=== PATIENT | female | born 1985 | race Caucasian/White ===

== ENCOUNTER 2019-11-11 05:30 | Inpatient (IN) | payer OTHER ==
[2019-11-11] MEDS ORDERED: Sodium Chloride 0.9% 10 ML Syringe FLUSH PRN (05:56)
[2019-11-11] MEDS ORDERED: Nalbuphine 10 MG/ML Syringe IVPUSH PRN (05:56)
[2019-11-11] MEDS ORDERED: Lactated Ringers 1,000 ML IV SCH (06:00)
--- NOTE | 2019-11-11 06:05 | PCM.LDHP ---
L&D History of Present Illness - General Date of Service: 11/11/19 Admit Problem/Dx: Admission Diagnosis/Problem Admission Diagnosis/Problem Source of Information: Patient - History of Present Illness Introduction:: 34 year old at 39w2 by LMP consistent with 6 week ultrasound presents [facility] in [place] with Dr. Balderas complicated by 1. Gestational diabetes poorly controlled by diet but not to the degree she has required or agreed to medication 2. History of prior 9# baby - Related Data Allergies/Adverse Reactions: Allergies Allergy/AdvReac Type Severity Reaction Status Date / Time No Known Allergies Allergy Verified 11/11/19 05:56 Social & Family History - Family History Family Medical History: Noncontributory - Tobacco Use Smoking Status *Q: Never Smoker H&P Review of Systems - Review of Systems: Review Of Systems: See Below General: Reports: No Symptoms HEENT: Reports: No Symptoms Pulmonary: Reports: No Symptoms Cardiovascular: Reports: No Symptoms Gastrointestinal: Reports: No Symptoms Genitourinary: Reports: No Symptoms Musculoskeletal: Reports: No Symptoms Skin: Reports: No Symptoms Psychiatric: Reports: No Symptoms Neurological: Reports: No Symptoms Hematologic/Lymphatic: Reports: No Symptoms Immunologic: Reports: No Symptoms L&D Exam - Exam Exam: See Below - Vital Signs Weight: 83.007 kg - OB Specific Contraction Intensity: Moderate to Strong Movement: Active Heart Tones: Present - Obrien Score Obrien Score Cervix Position: Anterior Obrien Score Consistency: Soft Obrien Score Effacement: >80% Obrien Score Dilation: > 5 cm Obrien Score Infant's Station: -2 Obrien Score Total: 11 - Exam General: Alert, Oriented HEENT: PERRLA, Conjunctiva Clear, EACs Clear, EOMI, Hearing Intact, Mucosa Moist & [place], Nares Patent, Normal Nasal Septum, Posterior Pharynx Clear, TMs Clear Neck: Supple, Trachea Midline Lungs: Clear to Auscultation, Normal Respiratory Effort Cardiovascular: Regular Rate, Regular Rhythm GI/Abdominal Exam: Normal Bowel Sounds, Soft, Non-Tender, No Organomegaly, No Distention, No Abnormal Bruit, No Mass Genitourinary: Normal external exam, Normal bimanual exam Back Exam: Normal Inspection, Full Range of Motion Extremities: Normal Inspection, Normal Range of Motion, Non-Tender, No Pedal E luci, Normal Capillary Refill Skin: Warm, Dry, Intact Neurological: Cranial Nerves Intact, Reflexes Equal Bilateral Psychiatric: Alert, Normal Affect, Normal Mood Problem List Initiated/Reviewed/Updated: Yes Assessment/Plan Comment:: Term labor with gestational diabetes. Anticipate .
[2019-11-11] MEDS ORDERED: Azithromycin 500 MG in Sodium Chloride 0.9% 250 ML IV ONE (06:50)
[2019-11-11] MEDS ORDERED: Lidocaine 1% 10 ML MDV INJECT ONE (06:54)
[2019-11-11] MEDS ORDERED: Oxytocin/Lactated Ringers 10 UNIT/1,000 ML BAG IV SCH (06:54)
--- NOTE | 2019-11-11 07:39 | PCM.SN.2 ---
- Free Text/Narrative Note: Stage I - Patient presented in active labor with SROM thick meconium. [facility] with Dr. Balderas complicated by gestational diabetes with inadequate control. Prior 9# . Mom unable to gauge if this baby is bigger. Progressed to complete with overall reassuring heart tones. Stage II - With maternal effort head delivered in controlled manner slowly over intact perineum at 0652. Shoulders did not come easily. Brandi preformed. Head PARISA. Pressure exterted on anterior shoulder with care and no progress toward delivery. Rectum emptied with pressure on perineum. Gentle pressure anterior on baby's posterior (left) shoulder. Some movement but still delivery not achieved. More pressure on posterior shoulder and delivery achieved of limp . Stage III - of intact meconium stained placenta. 350 EBL. 3v cord. Cord gases and blood collected. Small first degree laceration repaired with 3-0 vicryl.
[2019-11-11] MEDS: Ibuprofen 600 MG Tab PO PRN ×3 (09:08→21:41)
[2019-11-11] MEDS: Acetaminophen 325 MG Tab PO PRN (20:07)
--- NOTE | 2019-11-12 00:01 | PCM.PNPP ---
- General Info Date of Service: 11/12/19 Functional Status: Reports: Pain Controlled, Tolerating Diet, Ambulating, Urinating - Review of Systems General: Reports: No Symptoms Pulmonary: Reports: No Symptoms Cardiovascular: Reports: No Symptoms Gastrointestinal: Reports: No Symptoms Genitourinary: Reports: No Symptoms Musculoskeletal: Reports: No Symptoms Neurological: Reports: No Symptoms Psychiatric: Reports: Other (tearful - baby to be transferred to [place]) - General Info Date of Service: 11/12/19 - Patient Data Vital Signs - Most Recent: Last Vital Signs Temp 36.6 C 11/11/19 17:07 Pulse 77 11/11/19 17:07 Resp 14 11/11/19 17:07 BP 110/88 11/11/19 17:07 Pulse Ox 99 11/11/19 17:07 Weight - Most Recent: 83.007 kg I&O - Last 24 Hours: Intake & Output 11/11/19 11/11/19 11/12/19 14:59 22:59 06:59 Intake Total 120 Balance 120 Lab Results - Last 24 Hours: Laboratory Results - last 24 hr 11/11/19 11/11/19 11/11/19 Range/Units 06:15 07:45 07:45 WBC 16.50 H (3.98-10.04) K/mm3 RBC 4.04 (3.98-5.22) M/mm3 Hgb 10.8 L (11.2-15.7) gm/dl Hct 34.4 (34.1-44.9) % MCV 85.1 (79.4-94.8) fl MCH 26.7 (25.6-32.2) pg MCHC 31.4 L (32.2-35.5) g/dl RDW Std Deviation 56.0 H (36.4-46.3) fL Plt Count 230 (182-369) K/mm3 MPV 10.1 (9.4-12.3) fl Neut % (Auto) 90.4 H (34.0-71.1) % Lymph % (Auto) 4.7 L (19.3-51.7) % [place] % (Auto) 3.8 L (4.7-12.5) % Eos % (Auto) 0 L (0.7-5.8) Baso % (Auto) 0.1 (0.1-1.2) % Neut # (Auto) 14.92 H (1.56-6.13) K/mm3 Lymph # (Auto) 0.77 L (1.18-3.74) K/mm3 [place] # (Auto) 0.63 H (0.24-0.36) K/mm3 Eos # (Auto) 0.00 L (0.04-0.36) K/mm3 Baso # (Auto) 0.02 (0.01-0.08) K/mm3 Manual Slide Review Abnormal smear Glucose (74-106) mg/dL POC Glucose 116 H (70-105) mg/dL RPR Non-reactive (NONREACTIVE) COVID-19 (PRAFUL) (NEGATIVE) 11/11/19 11/11/19 Range/Units 07:45 08:20 WBC (3.98-10.04) K/mm3 RBC (3.98-5.22) M/mm3 Hgb (11.2-15.7) gm/dl Hct (34.1-44.9) % MCV (79.4-94.8) fl MCH (25.6-32.2) pg MCHC (32.2-35.5) g/dl RDW Std Deviation (36.4-46.3) fL Plt Count (182-369) K/mm3 MPV (9.4-12.3) fl Neut % (Auto) (34.0-71.1) % Lymph % (Auto) (19.3-51.7) % [place] % (Auto) (4.7-12.5) % Eos % (Auto) (0.7-5.8) Baso % (Auto) (0.1-1.2) % Neut # (Auto) (1.56-6.13) K/mm3 Lymph # (Auto) (1.18-3.74) K/mm3 [place] # (Auto) (0.24-0.36) K/mm3 Eos # (Auto) (0.04-0.36) K/mm3 Baso # (Auto) (0.01-0.08) K/mm3 Manual Slide Review Glucose 155 H (74-106) mg/dL POC Glucose (70-105) mg/dL RPR (NONREACTIVE) COVID-19 (PRAFUL) Negative (NEGATIVE) Med Orders - Current: Current Medications Acetaminophen (Tylenol) 650 mg PO Q6H PRN PRN Reason: Pain (mild 1-3) Last Admin: 11/11/19 20:07 Dose: 650 mg Documented by: Oxytocin/Lactated Ringer's (Pitocin In Lr 10 Units/1,000 Ml) 10 unit in 1,000 mls @ 3,000 mls/hr IV TITRATE WILLAM; Protocol Last Admin: 11/11/19 07:48 Dose: 500 munits/min, 3,000 mls/hr Documented by: Ibuprofen (Motrin) 600 mg PO Q6H PRN PRN Reason: Mild pain or fever Last Admin: 11/11/19 21:41 Dose: 600 mg Documented by: Discontinued Medications Lactated Ringer's (Ringers, Lactated) 1,000 mls @ 100 mls/hr IV ASDIRECTED WILLAM Azithromycin 500 mg/ Sodium (Chloride) 250 mls @ 250 mls/hr IV ONETIME ONE Stop: 11/11/19 07:49 Last Admin: 11/11/19 08:16 Dose: Not Given Documented by: Lidocaine HCl (Xylocaine 1%) 10 ml INJECT ONETIME ONE Stop: 11/11/19 06:55 Last Admin: 11/11/19 07:53 Dose: 10 ml Documented by: Nalbuphine HCl (Nubain) 10 mg IVPUSH Q2H PRN PRN Reason: Pain Sodium Chloride (Saline Flush) 10 ml FLUSH ASDIRECTED PRN PRN Reason: Keep Vein Open - Interaction Disposition, : [facility] to Nursery Support Person: - Recovery Exam Fundal Tone: Firm Fundal Level: At Umbilicus Fundal Placement: Midline Lochia Color: Rubra/Red Perineum Description: Other (see below) Other Perinuem Description: 1st degree lac with repair Bladder Status: Voiding Urinary Elimination: Voided - Exam General: Alert, Oriented, Cooperative GI/Abdominal Exam: Soft, Non-Tender Extremities: Normal Inspection Skin: Warm, Dry, Intact - Problem List & Annotations (1) Vaginal delivery SNOMED Code(s): 962820091 Code(s): O80 - ENCOUNTER FOR FULL-TERM UNCOMPLICATED DELIVERY Status: Acute Current Visit: Yes (2) Shoulder dystocia during labor and delivery, delivered SNOMED Code(s): 915527439, 364812332 Code(s): O66.0 - OBSTRUCTED LABOR DUE TO SHOULDER DYSTOCIA Status: Acute Current Visit: Yes (3) Gestational diabetes SNOMED Code(s): 75514529 Code(s): O24.419 - GESTATIONAL DIABETES MELLITUS IN , UNSP CONTROL Status: Acute Current Visit: Yes Qualifiers: Gestational diabetes mellitus control: unspecified Trimester: unspecified trimester Qualified Code(s): O24.419 - Gestational diabetes mellitus in pre gnancy, unspecified control - Problem List Review Problem List Initiated/Reviewed/Updated: Yes - My Orders Last 24 Hours: My Active Orders 11/12/19 00:00 Ready for Discharge [RC] PER UNIT ROUTINE - Assessment Assessment:: PPD#1 - Plan Plan:: * Baby being transferred to NICU. Will discharge patient so can follow * will need 2hr GTT post delivery, asked patient to follow up with her primary Systems Technologist
--- NOTE | 2019-11-12 00:01 | PCM.DCSUM1 ---
Discharge Summary - Discharge Data Discharge Date: 11/12/19 Discharge Disposition: Home, Self-Care 01 Condition: Good - Referral to Home Health Primary Care Physician: Kalyn Rodríguez MD - Patient Summary/Data Complications: None Consults: None Recommended Follow-up Testing/Procedures: Follow up in 3 weeks for check Hospital Course: 34 y/o presented at 39 2/7 wks in labor. Progressed rapidly to complete dilation. Underwent a vaginal delivery notable for shoulder dystocia. See delivery note. did well.. Was discharged home on PPD#1 - Patient Instructions Diet: Regular Diet as Tolerated Activity: As Tolerated Activity, Other: Pelvic rest for 6 weeks Driving: May Drive Today Showering/Bathing: May Shower Showering/Bathing, Other: May Bathe Notify Provider of: Fever, Increased Pain, Swelling and Redness, Drainage, Nausea and/or Vomiting - Discharge Plan *PRESCRIPTION DRUG MONITORING PROGRAM REVIEWED*: No *COPY OF PRESCRIPTION DRUG MONITORING REPORT IN PATIENT VALENTÍN: No Home Medications: Home Meds Acetaminophen [Tylenol] 650 mg PO Q6H PRN tablet 11/11/19 [Rx] Ibuprofen [Motrin] 600 mg PO Q6H PRN tablet 11/11/19 [Rx] Patient Handouts: Care After Vaginal Delivery Referrals: Marta Bautista MD [Ordering Only Provider] - (3 weeks for check ) - Discharge Summary/Plan Comment DC Time >30 min.: No - Patient Data Vitals - Most Recent: Last Vital Signs Temp 36.6 C 11/11/19 17:07 Pulse 77 11/11/19 17:07 Resp 14 11/11/19 17:07 BP 110/88 11/11/19 17:07 Pulse Ox 99 11/11/19 17:07 Weight - Most Recent: 83.007 kg I&O - Last 24 hours: Intake & Output 11/11/19 11/11/19 11/12/19 14:59 22:59 06:59 Intake Total 120 Balance 120 Lab Results - Last 24 hrs: Laboratory Results - last 24 hr 11/11/19 11/11/19 11/11/19 Range/Units 06:15 07:45 07:45 WBC 16.50 H (3.98-10.04) K/mm3 RBC 4.04 (3.98-5.22) M/mm3 Hgb 10.8 L (11.2-15.7) gm/dl Hct 34.4 (34.1-44.9) % MCV 85.1 (79.4-94.8) fl MCH 26.7 (25.6-32.2) pg MCHC 31.4 L (32.2-35.5) g/dl RDW Std Deviation 56.0 H (36.4-46.3) fL Plt Count 230 (182-369) K/mm3 MPV 10.1 (9.4-12.3) fl Neut % (Auto) 90.4 H (34.0-71.1) % Lymph % (Auto) 4.7 L (19.3-51.7) % [place] % (Auto) 3.8 L (4.7-12.5) % Eos % (Auto) 0 L (0.7-5.8) Baso % (Auto) 0.1 (0.1-1.2) % Neut # (Auto) 14.92 H (1.56-6.13) K/mm3 Lymph # (Auto) 0.77 L (1.18-3.74) K/mm3 [place] # (Auto) 0.63 H (0.24-0.36) K/mm3 Eos # (Auto) 0.00 L (0.04-0.36) K/mm3 Baso # (Auto) 0.02 (0.01-0.08) K/mm3 Manual Slide Review Abnormal smear Glucose (74-106) mg/dL POC Glucose 116 H (70-105) mg/dL RPR Non-reactive (NONREACTIVE) COVID-19 (PRAFUL) (NEGATIVE) 11/11/19 11/11/19 Range/Units 07:45 08:20 WBC (3.98-10.04) K/mm3 RBC (3.98-5.22) M/mm3 Hgb (11.2-15.7) gm/dl Hct (34.1-44.9) % MCV (79.4-94.8) fl MCH (25.6-32.2) pg MCHC (32.2-35.5) g/dl RDW Std Deviation (36.4-46.3) fL Plt Count (182-369) K/mm3 MPV (9.4-12.3) fl Neut % (Auto) (34.0-71.1) % Lymph % (Auto) (19.3-51.7) % [place] % (Auto) (4.7-12.5) % Eos % (Auto) (0.7-5.8) Baso % (Auto) (0.1-1.2) % Neut # (Auto) (1.56-6.13) K/mm3 Lymph # (Auto) (1.18-3.74) K/mm3 [place] # (Auto) (0.24-0.36) K/mm3 Eos # (Auto) (0.04-0.36) K/mm3 Baso # (Auto) (0.01-0.08) K/mm3 Manual Slide Review Glucose 155 H (74-106) mg/dL POC Glucose (70-105) mg/dL RPR (NONREACTIVE) COVID-19 (PRAFUL) Negative (NEGATIVE) Med Orders - Current: Current Medications Acetaminophen (Tylenol) 650 mg PO Q6H PRN PRN Reason: Pain (mild 1-3) Last Admin: 11/11/19 20:07 Dose: 650 mg Documented by: Oxytocin/Lactated Ringer's (Pitocin In Lr 10 Units/1,000 Ml) 10 unit in 1,000 mls @ 3,000 mls/hr IV TITRATE WILLAM; Protocol Last Admin: 11/11/19 07:48 Dose: 500 munits/min, 3,000 mls/hr Documented by: Ibuprofen (Motrin) 600 mg PO Q6H PRN PRN Reason: Mild pain or fever Last Admin: 11/11/19 21:41 Dose: 600 mg Documented by: Discontinued Medications Lactated Ringer's (Ringers, Lactated) 1,000 mls @ 100 mls/hr IV ASDIRECTED WILLAM Azithromycin 500 mg/ Sodium (Chloride) 250 mls @ 250 mls/hr IV ONETIME ONE Stop: 11/11/19 07:49 Last Admin: 11/11/19 08:16 Dose: Not Given Documented by: Lidocaine HCl (Xylocaine 1%) 10 ml INJECT ONETIME ONE Stop: 11/11/19 06:55 Last Admin: 11/11/19 07:53 Dose: 10 ml Documented by: Nalbuphine HCl (Nubain) 10 mg IVPUSH Q2H PRN PRN Reason: Pain Sodium Chloride (Saline Flush) 10 ml FLUSH ASDIRECTED PRN PRN Reason: Keep Vein Open
[2019-11-12] MEDS: Acetaminophen 325 MG Tab PO PRN (03:16)
[2019-11-12] MEDS: Ibuprofen 600 MG Tab PO PRN (03:56)
== END 2019-11-12 08:10 | disposition home or self-care (01) | DRG 807 ==
LOC: JD.OBCHECK 05:30 → JD.OB 05:57 → OBSVTOIN 06:54 → JD.OB 06:54
PROVIDERS: ADMIT Obstetrics & Gynecology; ATTEND Obstetrics & Gynecology
PROC: 10E0XZZ Delivery of Products of Conception, External Approach (ICD-10-PCS; principal; 2019-11-11)
PROC: 0HQ9XZZ Repair Perineum Skin, External Approach (ICD-10-PCS; 2019-11-11)
DX: O24.429 Gestational diabetes mellitus in childbirth, unspecified control (principal); Z37.0 Single live birth; Z3A.39 39 weeks gestation of pregnancy; O77.0 Labor and delivery complicated by meconium in amniotic fluid; O70.0 First degree perineal laceration during delivery; O66.0 Obstructed labor due to shoulder dystocia; Z11.59 Encounter for screening for other viral diseases
CPT/HCPCS: 36415; 59025; 59409; 82947; 82962; 85025; 86592; A9270-GY; J2001; J2590; U0002